=== PATIENT | female | born 1980 | race American Indian/Alaskan Native ===

== ENCOUNTER 2016-07-04 09:00 | Outpatient (CLI) | payer MEDICAID ==
[2016-07-04 18:45] VITALS: BP 107/62
== END 2016-07-04 19:22 | disposition home or self-care (01) ==
LOC: TRG 09:00
PROVIDERS: ATTEND Obstetrics & Gynecology
DX: O77.9 Labor and delivery complicated by fetal stress, unspecified (principal); O47.9 False labor, unspecified; Z3A.00 Weeks of gestation of pregnancy not specified
CPT/HCPCS: 59025; 96372

== ENCOUNTER 2016-07-04 13:46 | Inpatient (IN) | payer MEDICAID ==
[~2016-07-04 13:46] MED LIST: FLUARIX QUAD 2016-2017(36 MOS+) IM ONE
[2016-07-04] MEDS ORDERED: STADOL ONE (14:03)
[2016-07-04] MEDS ORDERED: POLYCILLIN/NS 2 GM/100 ML 2 GM/100 ML BAG IV ONE (14:03)
--- NOTE | 2016-07-04 14:30 | History and Physical Report ---
History of Present Illness Date of examination: 07/04/16 Date of admission: 07/04/16 13:46 History of present illness: Patient presented to labor and delivery for complaints of regular contractions and vaginal bleeding. On initial exam by RN patient's cervix 4 cm which is a change from earlier of 1 cm and patient's been admitted active labor. 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 yes EDC Calculations LMP: 07/11/2016 Past History : 6 Term Births: 3 Living Children: 3 Para: 3 Aborta: 2 Elect. Ab: 2 Spont. Ab: 0 Ectopics: 0 # 1 Delivery date: 02/11/2001 Weeks Gestation: 42 labor: no Delivery type: Anesthesia type: epidural Delivery location: [facility] Infant Sex: Female weight: 7lbs Comments: no complications # 2 Delivery date: 04/10/2003 Weeks Gestation: 39 labor: no Delivery type: Anesthesia type: epidural Delivery location: [facility] Infant Sex: Male weight: 7-2 Comments: no complications # 3 Delivery date: 04/03/2008 Weeks Gestation: ~22wks Delivery type: EAB Comments: 2nd trimester termination # 4 Delivery date: 05/06/2009 Weeks Gestation: 40 Delivery type: Anesthesia type: epidural Delivery location: [facility]ant Sex: Male weight: 7# # 5 Delivery date: 04/01/2015 Weeks Gestation: 13 Delivery type: EAB Past Medical History: Negative Past Medical History Past Surgical History: Negative Past Surgical History EAB x 2 - 22wks and 13wks Past Medical History Surgery (Non-foot cutter): Negative Past Surgical History EAB x 2 - 22wks and 13wks Abnormal PAP: negative GERALDINE Exposure: negative Infertility: negative Uterine Anomaly: negative Uterine Surgery (not C/S): negative Other Gynecologic Problems: negative Social Hx: Patient is single Smoking History: Patient has never smoked. Infection History Hx of STD: chlamydia HIV Risk Eval: no Hepatitis B Risk Eval: low risk Personal hx. of genital herpes: yes Partner hx. of genital herpes: no Rash, Viral, or Febrile illness since last LMP? no Varicella/Chicken Pox Status: Previous Disease TB Risk: no Infection History Comments: HSV outbreaks usually once per year Genetic History ADVANCED MATERNAL AGE Congenital Heart Defect: Mom: no Dad: no Heather Disease: Mom: no Dad: no Thalassemia Mom: no Dad: no Neural Tube Defect Mom: no Dad: no Down's Syndrome Mom: no Dad: no Jordan-Sachs Mom: no Dad: no Sickle Cell Disease/Trait Mom: no Dad: no Hemophilia Mom: no Dad: no Muscular Dystrophy Mom: no Dad: no Cystic Fibrosis Mom: no Dad: no Karolyn Chorea Mom: no Dad: no Mental Retardation Mom: no Dad: no Fragile X Mom: no Dad: no Other Genetic/Chromosomal Disorder Mom: no Dad: no Child w/other defect Mom: no Dad: no Enviromental Exposures Xray Exposure: no Medication, drug, or alcohol use since LMP: no Chemical/Other Exposure: no Exposure to Cat Liter: no Hx of Parvovirus (Fifth Disease): no Occupational Exposure to Children: none Active Medications: None Current Allergies (reviewed today): No known allergies Past History Past Medical History: other (See HPI) Past Surgical History: D&C, other (See HPI) 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, 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 (See HPI) Family/Genetic History: other (See HPI) Social history: other (See HPI) - Obstetrical History Expected Date of Delivery: 07/11/16 Actual Gestation: 39 Week(s) 0 Day(s) : 6 Para: 3 Hx # Term Pregnancies: 3 Number of Pregnancies: 0 Spontaneous Abortions: 0 Induced : 2 Number of Living Children: 3 Medications and Allergies Allergies Allergy/AdvReac Type Severity Reaction Status Date / Time Penicillins Allergy Swelling Verified 07/04/16 14:39 Home Medications Medication Instructions Recorded Confirmed Last Taken Type No Known Home Medications [No 07/04/16 07/04/16 Unknown History Reported Home Medications] - Vital Signs Vital signs: Vital Signs Pulse Pulse Ox 86 99 07/04/16 13:48 07/04/16 13:48 Temp Pulse Resp BP Pulse Ox 98 H 102/59 93 07/04/16 14:16 07/04/16 14:15 07/04/16 14:16 - Physical Exam Breasts: Positive: deferred Cardiovascular: Regular rate Lungs: Positive: Normal air movement Abdomen: Positive: normal appearance Genitourinary (Female): Positive: normal external genitalia, other (no lesion seen) Vulva: both: normal Vagina: Positive: normal moisture - Obstetrical FHR: category 1 Uterine Contraction Pattern: Regular Results Result Diagrams: 07/04/16 15:30 All other labs normal. Assessment and Plan - Patient Problems (1) 39 weeks gestation of Current Visit: Yes Status: Acute (2) Active labor at term Current Visit: Yes Status: Acute Plan to address problem: Patient admitted following labor and delivery protocol (3) Herpes Current Visit: Yes Status: Inactive Plan to address problem: No active lesions seen (4) Polyhydramnios Current Visit: Yes Status: Acute Qualifiers: Fetus number: single or unspecified fetus Trimester: third trimester Qualified Code(s): O40.3XX0 - Polyhydramnios, third trimester, not applicable or unspecified (5) Morbid obesity due to excess calories Current Visit: Yes Status: Chronic (6) Advanced maternal age (AMA) in Current Visit: Yes Status: Acute (7) Group B streptococcal carriage complicating Current Visit: Yes Status: Acute Plan to address problem: Antiboitic prophylaxis started
[2016-07-04] MEDS ORDERED: STADOL IV PRN ×2 (14:37→14:39)
[2016-07-04] MEDS ORDERED: PHENERGAN PO PRN ×2 (14:39→22:57)
[2016-07-04] MEDS ORDERED: ePHEDrine SULFATE IV PRN (14:39)
[2016-07-04] MEDS ORDERED: PITOCin/NS 20 UNIT/1000ML DRIP 20 UNIT/1,000 ML BAG IV SCH ×2 (15:00→22:57)
[2016-07-04] MEDS ORDERED: LACTATED RINGERS 1,000 ML IV SCH ×2 (15:00→16:00)
[2016-07-04 15:05] LABS: Hematocrit 27.6 % (30.3-42.9); Hemoglobin 8.4 gm/dl (10.1-14.3); Mean Corpuscular HGB Conc 30 % (30-34); Mean Corpuscular Volume 72 fl (79-97); Red Blood Count 3.84 M/mm3 (3.65-5.03); White Blood Count 16.7 K/mm3 (4.5-11.0)
[2016-07-04 15:18] LABS: Mean Corpuscular Hemoglobin 22 pg (28-32)
[2016-07-04 15:19] LABS: Platelet Count 97 K/mm3 (140-440); Red Cell Distribution Width 22.8 % (13.2-15.2)
[2016-07-04] MEDS ORDERED: BRETHINE IVP PRN (15:53)
[2016-07-04] MEDS ORDERED: ZOFRAN ONE (15:53)
[2016-07-04 16:22] LABS: White Blood Count 16.7 K/mm3 (4.5-11.0)
[2016-07-04 16:23] LABS: Hematocrit 27.6 % (30.3-42.9); Hemoglobin 8.4 gm/dl (10.1-14.3); Mean Corpuscular HGB Conc 30 % (30-34); Mean Corpuscular Hemoglobin 22 pg (28-32); Mean Corpuscular Volume 72 fl (79-97); Red Blood Count 3.84 M/mm3 (3.65-5.03)
[2016-07-04 16:24] LABS: Platelet Count 97 K/mm3 (140-440); Red Cell Distribution Width 22.8 % (13.2-15.2)
[2016-07-04] MEDS ORDERED: CLEOCIN 900 MG/50 mL 900 MG/50 ML BAG IV SCH (17:00)
--- NOTE | 2016-07-04 17:15 | Event Note ---
Date: 07/04/16 Patient could not receive epidural due to thrombocytopenia exam is now 8 cm 100 % effaced 0 station. Artificial rupture membranes revealed clear fluid. We'll continue expected management hopeful for delivery soon
--- NOTE | 2016-07-04 18:15 | Procedure Note ---
OB Delivery Note - Delivery Date of Delivery: 07/04/16 Surgeon: FLAQUITA OSORIO Estimated blood loss: other (400cc) - Vaginal Delivery position: OA Intrapartum events: hydramnios Delivery augmentation: rupture of membranes Delivery monitor: external FHT, external uterine Route of delivery: Delivery placenta: spontaneous Delivery cord: nuchal cord (x2), 3 umbilical vessels Episiotomy: none Delivery laceration: none - Infant A at 1 minute: 8 at 5 minutes: 9 Infant Gender: Male (Uncomplicated delivery nuchal cord easily reduced)
[2016-07-04] MEDS ORDERED: MOTRIN PO ONE (18:30)
[2016-07-04] MEDS ORDERED: LANSINOH TP PRN (22:57)
[2016-07-04] MEDS ORDERED: MILK OF MAGNESIA PO PRN (22:57)
[2016-07-04] MEDS ORDERED: BENADRYL PO PRN (22:57)
[2016-07-04] MEDS ORDERED: TUCKS PAD TP PRN (22:57)
[2016-07-04] MEDS ORDERED: TYLENOL PO PRN (22:57)
[2016-07-04] MEDS ORDERED: DERMOPLAST TP PRN (22:57)
[2016-07-04] MEDS ORDERED: SODIUM CHLORIDE FLUSH SYRINGE 10 ML IV NR (22:57)
[2016-07-04] MEDS ORDERED: NORCO 5/325 PO PRN (22:57)
[2016-07-04] MEDS ORDERED: DULCOLAX PR PRN (22:57)
[2016-07-05] MEDS: COLACE PO SCH ×3 (00:08→22:40)
[2016-07-05] MEDS: MOTRIN PO SCH ×4 (00:08→23:55)
[2016-07-05] MEDS ORDERED: BOOSTRIX IM ONE (06:00)
--- NOTE | 2016-07-05 06:30 | Progress Note ---
Assessment and Plan - Patient Problems (1) Spontaneous vaginal delivery Onset Date: ~07/04/16 Current Visit: Yes Status: Acute Plan to address problem: Pt w/o complaint this AM. VSS FF below umb Lochia small Perineum intact H&H 8.4/ 27.6 on admission Waiting for post del H&H to be drawn Chronic anemia. Doing well s/p vag delivery. P: continue pathway. Iron PO QD D/C tomorrow Subjective - Subjective Date of service: 07/05/16 (pt req d/c explained GBS not fully treated d/c tomorrow Pt OK) Patient reports: appetite normal, voiding normally, pain well controlled, ambulating normally : doing well Objective - Vital Signs Latest vital signs: Vital Signs Temp Pulse Pulse Resp BP BP Pulse Ox 07/05/16 04:51 98.9 F 98 H 20 103/67 07/05/16 00:00 99.1 F 96 H 20 105/61 07/04/16 20:00 99.0 F 91 H 20 98/62 07/04/16 18:24 112/52 07/04/16 17:10 97.6 F 07/04/16 14:40 98.1 F 80 18 102/59 99 07/04/16 14:16 98 H 93 07/04/16 14:15 88 102/59 07/04/16 14:13 82 95 07/04/16 14:09 94 H 94 07/04/16 14:08 88 98 07/04/16 14:03 85 95 07/04/16 13:58 88 98 07/04/16 13:54 82 92 07/04/16 13:53 84 96 07/04/16 13:48 86 99 Intake and Output 07/04/16 07/04/16 07/05/16 14:59 22:59 06:59 Intake Total 2850 360 Output Total 800 Balance 2850 -440 Intake: IV 2850 CLEOCIN 900 MG/50 mL 900 50 mg In 50 ml @ 0 mls/hr IV Q8H ALTAGRACIA Rx#:[id number] Lactated Ringers 1,000 ml 2000 @ 125 mls/hr IV DIRECT ALTAGRACIA Rx#:[id number] PITOCin/NS 20 UNIT/1000ML 800 DRIP 20 unit In 1,000 ml @ 125 mls/hr IV DIRECT ALTAGRACIA Rx#:[id number] Oral 360 Output: Urine 800 Void 800 Other: Total, Intake Amount 240 Total, Output Amount 200 # Voids Void 1 Weight 230 lb Estimated Blood Loss 400 Patient Weight 07/05/16 06:59 Weight 230 lb - Exam Breasts: Present: deferred Cardiovascular: Present: Regular rate Lungs: Present: Clear to auscultation, Normal air movement Abdomen: Present: normal appearance, soft, normal bowel sounds Uterus: Present: normal, fundal height below umbilicus Extremities: Present: normal Deep Tendon Reflex Grade: Normal +2 Incision: Present: normal, dry, intact Comments: Perineum intact No laceration - Labs Labs: Abnormal lab results 07/04/16 07/04/16 Range/Units 14:30 15:30 WBC 16.7 H 16.7 H (4.5-11.0) K/mm3 Hgb 8.4 L 8.4 L (10.1-14.3) gm/dl Hct 27.6 L 27.6 L (30.3-42.9) % MCV 72 L 72 L (79-97) fl MCH 22 L 22 L (28-32) pg RDW 22.8 H 22.8 H (13.2-15.2) % Plt Count 97 L 97 L (140-440) K/mm3
[2016-07-05] MEDS: PRENATAL VITAMIN PO SCH (12:15)
[2016-07-05 14:03] LABS: Hemoglobin 6.8 gm/dl (10.1-14.3)
[2016-07-05] MEDS ORDERED: FEOSOL PO ONE (15:55)
[2016-07-05] MEDS: FEOSOL PO SCH ×2 (16:00→22:40)
[2016-07-05 17:28] LABS: Hematocrit 21.4 % (30.3-42.9); Hemoglobin 6.6 gm/dl (10.1-14.3)
[2016-07-06] MEDS: MOTRIN PO SCH ×2 (05:50→12:15)
[2016-07-06 06:13] LABS: Hematocrit 20.9 % (30.3-42.9); Hemoglobin 6.4 gm/dl (10.1-14.3); Mean Corpuscular HGB Conc 31 % (30-34); Mean Corpuscular Volume 73 fl (79-97); Platelet Count 112 K/mm3 (140-440); Red Blood Count 2.84 M/mm3 (3.65-5.03)
[2016-07-06 06:30] LABS: White Blood Count 20.4 K/mm3 (4.5-11.0)
[2016-07-06 06:31] LABS: Mean Corpuscular Hemoglobin 23 pg (28-32); Red Cell Distribution Width 23.2 % (13.2-15.2)
--- NOTE | 2016-07-06 08:54 | Progress Note ---
Assessment and Plan Patient doing well, no complaints, denies s/s anemia, most recent H&H 6.4/ 20.9. VSSAF, lochia scant, breast feeding without difficulty. Patient desires d/ c home today. - Patient Problems (1) Anemia Current Visit: Yes Status: Acute Qualifiers: Anemia type: iron deficiency Iron deficiency anemia type: inadequate dietary iron intake Vitamin B12 deficiency anemia type: V Folate deficiency anemia type: F Bone marrow failure anemia type: B Hemolytic anemia type: H Other causes of anemia: O Qualified Code(s): D50.8 - Other iron deficiency anemias Plan to address problem: pt is asymptomatic FE supplementation (2) Spontaneous vaginal delivery Onset Date: ~07/04/16 Current Visit: Yes Status: Acute Subjective - Subjective Date of service: 07/06/16 Principal diagnosis: day #2 s/p , chronic anemia Patient reports: appetite normal, voiding normally, pain well controlled, ambulating normally, no dizzy ambulation, no nauseated : doing well, nursing well Objective - Vital Signs Latest vital signs: Vital Signs Temp Pulse Resp BP 07/06/16 00:00 98.6 F 83 20 104/60 07/05/16 16:14 98.5 F 82 20 106/58 Intake and Output 07/05/16 07/06/16 07/06/16 22:59 06:59 14:59 Intake Total 240 240 Balance 240 240 Intake: Oral 240 240 Other: Total, Intake Amount 240 240 # Voids Void 1 1 - Exam Breasts: Present: normal, mass Lungs: Present: Clear to auscultation, Normal air movement Abdomen: Present: normal appearance, soft Vulva: both: normal Uterus: Present: normal, firm Extremities: Present: normal - Labs Labs: Abnormal lab results 07/05/16 07/05/16 07/06/16 Range/Units 13:25 17:15 05:46 WBC 20.4 H (4.5-11.0) K/mm3 RBC 2.84 L (3.65-5.03) M/mm3 Hgb 6.8 L 6.6 L 6.4 L (10.1-14.3) gm/dl Hct 22.0 L 21.4 L 20.9 L (30.3-42.9) % MCV 73 L (79-97) fl MCH 23 L (28-32) pg RDW 23.2 H (13.2-15.2) % Plt Count 112 L (140-440) K/mm3
--- NOTE | 2016-07-06 09:00 | Discharge Summary ---
Providers - Providers Date of Admission: 07/04/16 13:46 Date of discharge: 07/06/16 (desires d/c home today) Attending physician: FLAQUITA OSORIO 07/04/16 22:57 Consult to Watch Repair Technician [CONS] Routine Reason For Exam: assistance with , SNS Primary care physician: FLAQUITA OSORIO Hospitalization Reason for admission: active labor Delivery: Episiotomy: none Laceration: none Other procedures: none complications: none Discharge diagnosis: IUP at term delivered baby: male Hospital course: uncomplicated vaginal delivery Condition at discharge: Good Disposition: DISCHARGED TO HOME OR SELFCARE - Discharge Diagnoses (1) Anemia Status: Acute Qualifiers: Anemia type: iron deficiency Iron deficiency anemia type: inadequate dietary iron intake Vitamin B12 deficiency anemia type: V Folate deficiency anemia type: F Bone marrow failure anemia type: B Hemolytic anemia type: H Other causes of anemia: O Qualified Code(s): D50.8 - Other iron deficiency anemias (2) Spontaneous vaginal delivery Status: Acute Plan - Discharge Medications Prescriptions: Docusate Sodium [Colace] 100 mg PO BID PRN #60 capsule PRN Reason: Constipation Ferrous Sulfate [Feosol 325 MG tab] 325 mg PO BID #60 tablet Ibuprofen [Motrin 800 MG tab] 800 mg PO TID PRN #30 tablet PRN Reason: Pain Lidocain2.5%/Prilocai2.5% [Emla] 5 gm TP PRN #1 tube - Provider Discharge Summary Activity: routine, no sex for 6 weeks, no heavy lifting 4 weeks, no strenuous exercise Diet: routine Instructions: routine Additional instructions: [] Smoking cessation referral if applicable(refer to patient education folder for contact #) [] Refer to [facility] Booklet Call your doctor immediately for: * Fever > 100.5 * Heavy vaginal bleeding ( >1 pad per hour) * Severe persistent headache * Shortness of breath * Reddened, hot, painful area to leg or breast * Drainage or odor from incision. * Keep incision clean and dry at all times and follow doctor's instructions regarding bathing/showering - Follow up plan Follow up: FLAQUITA OSORIO MD [Primary Care Provider] - 7 Days (Congratulations! Please call [phone] to schedule your son's circumcision in 1 week and your visit in 4 weeks. Bring EMLA cream with you to his appointment and await further instructions. Call for any questions or concerns. )
[2016-07-06] MEDS: PRENATAL VITAMIN PO SCH (09:04)
[2016-07-06] MEDS: COLACE PO SCH (09:04)
[2016-07-06] MEDS ORDERED: FLUARIX QUAD 2016-2017(36 MOS+) IM ONE ×2 (12:00→17:15)
[2016-07-06 16:38] VITALS: BP 96/64
== END 2016-07-06 18:05 | disposition home or self-care (01) | DRG 774 ==
LOC: LD 13:46 → OB 20:05
PROVIDERS: ADMIT Obstetrics & Gynecology; ATTEND Obstetrics & Gynecology
PROC: 10E0XZZ Delivery of Products of Conception, External Approach (ICD-10-PCS; principal; 2016-07-04)
DX: O40.3XX0 Polyhydramnios, third trimester, not applicable or unspecified (principal); O98.513 Other viral diseases complicating pregnancy, third trimester; Z68.41 Body mass index [BMI] 40.0-44.9, adult; O99.214 Obesity complicating childbirth; E66.01 Morbid (severe) obesity due to excess calories; O99.824 Streptococcus B carrier state complicating childbirth; Z37.0 Single live birth; Z3A.39 39 weeks gestation of pregnancy; O99.02 Anemia complicating childbirth; D64.9 Anemia, unspecified; O09.523 Supervision of elderly multigravida, third trimester; B00.9 Herpesviral infection, unspecified; O69.81X0 Labor and delivery complicated by cord around neck, without compression, not applicable or unspecified
CPT/HCPCS: 36415; 85014; 85018; 85027; 86850; 86900; 86901; 90471; 90686; 90715; 99211; G0463; J0290; J0595; J2405; J2590; J7120

== ENCOUNTER 2017-04-10 22:53 | Emergency (ER) | payer MEDICAID, OTHER ==
[2017-04-10 23:35] LABS: Basophils % (Auto) 1.8 % (0.0-1.8); Eosinophils % (Auto) 5.2 % (0.0-4.3); Hematocrit 31.9 % (30.3-42.9); Hemoglobin 10.5 gm/dl (10.1-14.3); Mean Corpuscular HGB Conc 33 % (30-34); Mean Corpuscular Hemoglobin 28 pg (28-32); Mean Corpuscular Volume 86 fl (79-97); Platelet Count 222 K/mm3 (140-440); Red Blood Count 3.73 M/mm3 (3.65-5.03); Red Cell Distribution Width 16.6 % (13.2-15.2); White Blood Count 7.2 K/mm3 (4.5-11.0)
[2017-04-10 23:51] LABS: Alanine Aminotransferase 9 units/L (7-56); Albumin 3.8 g/dL (3.9-5); Albumin/Globulin Ratio 1.2 %; Alkaline Phosphatase 72 units/L (35-129); Anion Gap 15 mmol/L; BUN/Creatinine Ratio 25; Bilirubin,Total < 0.20 mg/dL (0.1-1.2); Blood Urea Nitrogen 10 mg/dL (7-17); Calcium 8.9 mg/dL (8.4-10.2); Carbon Dioxide 26 mmol/L (22-30); Chloride 104.9 mmol/L (98-107); Glucose 91 mg/dL (65-100); Lipase 33 units/L (13-60); Potassium 3.8 mmol/L (3.6-5.0); Sodium 142 mmol/L (137-145)
[2017-04-11 00:21] LABS: Mucus,Urine 1+ /HPF
[2017-04-11 00:34] LABS: Bilirubin,Urine Negative (Negative); Blood,Urine Negative (Negative); Ketones,Urine Negative (Negative)
[2017-04-11 00:35] LABS: Leukocyte Esterase,Urine Moderate (Negative); Nitrite,Urine Negative (Negative); Urobilinogen,Urine < 2.0 mg/dL (<2.0)
--- NOTE | 2017-04-11 04:46 | Emergency Department Report ---
ED Abdominal Pain HPI - General Chief Complaint: Abdominal Pain Stated Complaint: LOWER ABD PAIN Time Seen by Provider: 04/11/17 04:37 Source: patient Mode of arrival: Ambulatory Limitations: No Limitations - History of Present Illness Initial Comments: Patient is 36 years old female with no significant past medical history presented with suprapubic pain and dysuria. Patient denied any fever she stated that she has been having nausea but no vomiting. No other complaints. MD Complaint: abdominal pain Location: suprapubic Radiation: none Migration to: no migration Severity scale (0 -10): 3 Quality: burning Improves With: nothing Associated Symptoms: nausea, dysuria. denies: vomiting, diarrhea, fever, chills , constipation, hematemesis, hematochezia, melena, hematuria, anorexia, syncope - Related Data Home Medications Medication Instructions Recorded Confirmed Last Taken Nitrofurantoin Norman/M-Cryst 100 mg PO DAILY 08/24/16 08/24/16 Unknown [Macrobid CAP] Previous Rx's Medication Instructions Recorded Last Taken Type Docusate Sodium [Colace] 100 mg PO BID PRN #60 capsule 07/05/16 Unknown Rx Ferrous Sulfate [Feosol 325 MG tab] 325 mg PO BID #60 tablet 07/05/16 Unknown Rx Allergies Allergy/AdvReac Type Severity Reaction Status Date / Time Penicillins Allergy Swelling Verified 08/24/16 13:46 ED Review of Systems ROS: Stated complaint: LOWER ABD PAIN Other details as noted in HPI Comment: All other systems reviewed and negative Constitutional: denies: chills, fever Respiratory: denies: cough, orthopnea, shortness of breath, SOB with exertion Cardiovascular: denies: chest pain, palpitations, dyspnea on exertion Gastrointestinal: abdominal pain, nausea. denies: vomiting, diarrhea, constipation, hematemesis, melena, hematochezia Genitourinary: urgency, dysuria, frequency. denies: hematuria, discharge, abnormal menses Musculoskeletal: denies: back pain Neurological: denies: headache, weakness, numbness, paresthesias ED Past Medical Hx - Past Medical History Previous Medical History?: Yes Hx Hypertension: No Hx Congestive Heart Failure: No Hx Diabetes: No Hx Deep Vein Thrombosis: No Hx GERD: Yes (during ) Hx Renal Disease: No Hx Sickle Cell Disease: No Hx Seizures: No Hx Asthma: No Hx COPD: No Hx HIV: No Additional medical history: Obesity - Surgical History Past Surgical History?: No - Social History Smoking Status: Never Smoker Substance Use Type: None - Medications Home Medications: Home Medications Medication Instructions Recorded Confirmed Last Taken Type Docusate Sodium [Colace] 100 mg PO BID PRN #60 capsule 07/05/16 08/24/16 Unknown Rx Ferrous Sulfate [Feosol 325 MG tab] 325 mg PO BID #60 tablet 07/05/16 08/24/16 Unknown Rx Nitrofurantoin Norman/M-Cryst 100 mg PO DAILY 08/24/16 08/24/16 Unknown History [Macrobid CAP] ED Physical Exam - General Limitations: No Limitations General appearance: alert, in no apparent distress - Head Head exam: Present: normocephalic, normal inspection - Eye Eye exam: Present: normal appearance - ENT ENT exam: Present: normal exam - Neck Neck exam: Present: normal inspection - Respiratory Respiratory exam: Present: normal lung sounds bilaterally. Absent: respiratory distress, wheezes, rales, rhonchi, stridor, chest wall tenderness, accessory muscle use, decreased breath sounds, prolonged expiratory - Cardiovascular Cardiovascular Exam: Present: regular rate, normal rhythm, normal heart sounds - GI/Abdominal GI/Abdominal exam: Present: soft, tenderness (suprapubic), normal bowel sounds. Absent: distended, guarding, rebound, rigid, mass, bruit, pulsatile mass, hernia - Extremities Exam Extremities exam: Present: normal inspection - Back Exam Back exam: Present: normal inspection, full ROM. Absent: tenderness, CVA tenderness (R), CVA tenderness (L) - Neurological Exam Neurological exam: Present: alert, oriented X3, CN II-XII intact, normal gait - Skin Skin exam: Present: warm, intact, normal color ED Course Vital Signs 04/10/17 23:00 Temperature 97.9 F Pulse Rate 75 Respiratory 18 Rate Blood Pressure 110/80 [Right] O2 Sat by Pulse 100 Oximetry ED Medical Decision Making - Lab Data Result diagrams: 04/10/17 23:12 04/10/17 23:12 Critical care attestation.: If time is entered above; I have spent that time in minutes in the direct care of this critically ill patient, excluding procedure time. ED Disposition Clinical Impression: Abdominal pain, UTI (urinary tract infection) Disposition: - TO HOME OR SELFCARE Is pt being admited?: No Condition: Stable Instructions: Abdominal Pain (ED), Urinary Tract Infection in Women (ED) Referrals: AMANDA DAILEY MD [Primary Care Provider] - 3-5 Days
[2017-04-11 05:16] VITALS: BP 118/78
== END 2017-04-11 05:16 | disposition home or self-care (01) ==
LOC: ED 22:53
DX: N39.0 Urinary tract infection, site not specified (principal); E66.9 Obesity, unspecified; Z88.0 Allergy status to penicillin
CPT/HCPCS: 36415; 80053; 81001; 83690; 84702; 85025; 99283

== ENCOUNTER 2019-01-05 13:53 | Outpatient (CLI) | payer OTHER ==
[2019-01-05] MEDS ORDERED: LACTATED RINGERS 500 ML IV ONE (14:36)
[2019-01-05 15:15] VITALS: BP 124/74
[2019-01-05 17:23] LABS: Bacteria,Urine 1+ /HPF (Negative); Bilirubin,Urine NEG (Negative); Blood,Urine NEG (Negative); Color,Urine Yellow (Yellow); Protein,Urine <15 mg/dL mg/dL (Negative)
[2019-01-05] MEDS ORDERED: LACTATED RINGERS 1,000 ML IV ONE (17:41)
--- NOTE | 2019-01-06 09:04 | Ultrasound Report ---
ULTRASOUND BIOPHYSICAL PROFILE ULTRASOUND OB LIMITED INDICATION: decreased movement. well being. TECHNIQUE: Transabdominal ultrasound imaging. COMPARISON: None FINDINGS: breathing movement = 2 Gross body movement = 2 tone = 2 Qualitative amniotic fluid volume = 2 Total biophysical score = 8/8 Amniotic fluid index is 23.4 cm. Presentation is cephalic. heart rate is 166 beats per minute. IMPRESSION: biophysical profile equals 8/8. No acute abnormality appreciated. Signer Name: Se Moreno Jr, MD Signed: 01/06/2019 9:00 AM Workstation Name: [id number]
== END 2019-01-05 17:21 | disposition home or self-care (01) ==
LOC: TRG 13:53
PROVIDERS: ATTEND Obstetrics & Gynecology
DX: O47.03 False labor before 37 completed weeks of gestation, third trimester (principal); Z3A.34 34 weeks gestation of pregnancy
CPT/HCPCS: 59025; 76815; 76819; 81001

== ENCOUNTER 2019-01-21 12:30 | Outpatient (CLI) | payer OTHER ==
[2019-01-21 12:55] VITALS: BP 103/59
--- NOTE | 2019-01-21 14:51 | Ultrasound Report ---
ULTRASOUND BIOPHYSICAL PROFILE INDICATION: DECREASED MOVEMENT AND NR NST. COMPARISON: None available. FINDINGS: heart rate is 143 beats per minute. breathing movement = 2 Gross body movement = 2 tone = 2 Qualitative amniotic fluid volume = 2 IMPRESSION: biophysical profile = 01/08 Signer Name: Se Moreno Jr, MD Signed: 01/21/2019 2:47 PM Workstation Name: [id number]
== END 2019-01-21 14:35 | disposition home or self-care (01) ==
LOC: TRG 12:30
PROVIDERS: ATTEND Obstetrics & Gynecology
DX: O47.03 False labor before 37 completed weeks of gestation, third trimester (principal); Z3A.36 36 weeks gestation of pregnancy
CPT/HCPCS: 59025; 76819

== ENCOUNTER 2019-01-22 15:40 | Inpatient (IN) | payer OTHER ==
[2019-01-22] MEDS ORDERED: COLACE PO PRN (15:55)
[2019-01-22] MEDS ORDERED: TYLENOL PO PRN (15:55)
[2019-01-22] MEDS ORDERED: LACTATED RINGERS 1,000 ML IV SCH ×2 (16:00→20:00)
[2019-01-22] MEDS ORDERED: PEPCID IV SCH (19:30)
[2019-01-22] MEDS ORDERED: BICITRA PO SCH (19:30)
[2019-01-22] MEDS ORDERED: REGLAN IV SCH (19:30)
[2019-01-22] MEDS ORDERED: SUBLIMAZE ONE (19:43)
[2019-01-22] MEDS ORDERED: VERSED IV ONE (19:43)
[2019-01-22] MEDS ORDERED: PHENYLEPHRINE/NS Syringe 1,000 MCG/10 ML IV ONE (19:52)
[2019-01-22] MEDS ORDERED: DIPRIVAN 10 MG/ML IV ONE (19:55)
[2019-01-22] MEDS ORDERED: ANCEF/STERILE WATER 2 GM/20 ML 2 GM/20 ML SYRINGE IV NR (20:00)
[2019-01-22] MEDS ORDERED: PITOCin/NS 20 UNIT/1000ML DRIP 20 UNITS/1,000 ML BAG IV SCH (20:00)
[2019-01-22 20:16] LABS: Basophils % (Auto) 0.2 % (0.0-1.8); Eosinophils # (Auto) 0.2 K/mm3 (0.0-0.4); Eosinophils % (Auto) 1.8 % (0.0-4.3); Hematocrit 25.8 % (30.3-42.9); Hemoglobin 8.4 gm/dl (10.1-14.3); Lymphocytes # (Auto) 1.6 K/mm3 (1.2-5.4); Lymphocytes % (Auto) 17.5 % (13.4-35.0); Mean Corpuscular HGB Conc 33 % (30-34); Mean Corpuscular Volume 72 fl (79-97); Monocytes % (Auto) 11.2 % (0.0-7.3); Platelet Count 145 K/mm3 (140-440); Red Blood Count 3.61 M/mm3 (3.65-5.03); Red Cell Distribution Width 20.7 % (13.2-15.2)
[2019-01-22] MEDS ORDERED: BLOXIVERZ ONE (20:27)
[2019-01-22] MEDS ORDERED: TORADOL ONE (20:27)
[2019-01-22] MEDS ORDERED: ROBINUL ONE (20:27)
[2019-01-22] MEDS ORDERED: ZOFRAN ONE (20:27)
[2019-01-22] MEDS ORDERED: QUELICIN ONE (20:30)
[2019-01-22] MEDS ORDERED: MORPHINE ONE ×2 (20:31)
--- NOTE | 2019-01-22 20:37 | Ultrasound Report ---
CLINICAL DATA: well-being. TECHNICAL DATA: Document breath, motion, gestational age, tone, and fluid. FINDINGS: respiration, tone, and motion are not visualized. Amniotic fluid volume is normal. Biophysical profile score is 2/8. The lower uterine segment is evaluated and there is no evidence of placenta previa. heart rate is 126 IMPRESSION: The biophysical profile score is 2/8. Signer Name: Lupillo Archer MD Signed: 01/22/2019 8:32 PM Workstation Name: [id number]
--- NOTE | 2019-01-22 20:47 | Ultrasound Report ---
ULTRASOUND OBSTETRIC BIOPHYSICAL PROFILE INDICATION: nonreassuring status, possible ascites. Clinical gestational age of 36 weeks, 2 days TECHNIQUE: Transabdominal. COMPARISON: OB ultrasound from 01/21/2019. FINDINGS: There is a single intrauterine . Biparietal Diameter = 9.2 cm = 37 weeks, 3 day(s). Head Circumference = 32.16 cm = 36 weeks, 2 day(s). Abdominal Circumference = 36.53 cm = 40 weeks, 3 day(s). Femur Length = 7.18 cm = 36 weeks, 5 day(s). Average Ultrasound Age (AUA) = 37 weeks, 5 day(s). Heart Rate: 126 beats per minute. Estimated Weight in grams (if calculated): 3599 Position: cephalic. Cervix: closed. Length in cm (if measured): Placenta: anterior and free of the os. Amniotic Fluid Volume: normal Amniotic Fluid Index (SHIV) in cm (if calculated): 14.1. Maternal Adnexa: No significant abnormality. Additional findings: The systems technologist describes a possible minimal amount of free fluid in the abdomen. The biophysical profile is 2/8 (previously 8/8). breathing movements, movements and postu re/tone were abnormal during the study. IMPRESSION: 1. Single, living intrauterine with estimated sonographic age of 37 weeks, 5 day(s). 2. Possible minimal amount of free fluid in the abdomen. 3. Abnormal biophysical profile of 2/8. Signer Name: Jorge Jorge MD Signed: 01/22/2019 8:43 PM Workstation Name: [id number]
[2019-01-22] MEDS ORDERED: NARCAN 0.4 MG/1 ML IV PRN (20:56)
[2019-01-22] MEDS ORDERED: DILAUDID IV PRN (20:56)
[2019-01-22] MEDS ORDERED: PHENERGAN PO PRN (20:56)
[2019-01-22] MEDS ORDERED: PHENERGAN PR PRN (20:56)
[2019-01-22] MEDS ORDERED: ZOFRAN IV PRN (20:56)
--- NOTE | 2019-01-22 20:57 | Operative Report ---
Operative Report Operative Report: Date of procedure: Pre-operative diagnosis: Intrauterine of 36 weeks with prolonged bradycardia. Nonreassuring heart rate remote from delivery Post-operative diagnosis: Same Procedure name(s): Stat primary low transverse section Surgeon: Luis Kiran MD Rotary Rock Drilling Machine Operator: [] Anesthesia: Gen. EBL: 800 mL Complications: None Findings: Patient with normal uterus tubes and ovaries bilaterally. Depressed female . Weight and Apgars not immediately available due to resuscitation work the intensive care team Specimen(s): Placenta Indication: This is a patient admitted due to nonreassuring testing. Upon arrival to labor and delivery the patient heart tracing improved over was obtained the office. The patient had a biophysical profile done in our office [place] what appeared to be edema and biophysical profile 2 out of 8. Patient had a previous biophysical profile at the perinatologist earlier this week with results. 8 out of 8. The ultrasound was then repeated at the hospital due to inconsistency with previous ultrasounds. Patient underwent the ultrasound showed heart rate of 126 bpm but upon placing the patient back on monitor and the heart rates were in the 70s with no accelerations and no change with change in maternal position. I arrived at the hospital and upon in the patient's room patient was in the knee chest position with sustained bradycardia. stat was called and patient was moved to the OR expediently Procedure: The patient was brought to the operating room in a stat fashion. She was then placed in left lateral tilt. Prepped and draped in the usual sterile manner. Gen. anesthesia was induced without difficulty. A Pfannenstiel incision was made. This incision was taken down to the fascia. Fascial incision was then made with the scalpel. The fascia was then sharply and bluntly from the underlying rectus muscles. The rectus muscles were bluntly and sharply . The peritoneum was then entered with the picker machine operator's fingers. This incision was spread vertically with care not to damage the bladder below. Bladder blade was placed. A transverse incision was made in lower uterine segment. This incision was extended laterally with the operators fingers. The amniotic sac was then entered bluntly with the picker machine operator's fingers. The infant was delivered from the vertex position. Bulb suction on the mother's abdomen. Cord was double clamped and cut. The infant was then passed to the nursery personnel who were in attendance. The placenta was then bluntly removed. The uterus was then externalized and wiped clean the remaining products. The uterine incision was closed in layers. The first incision was closed in a locking manner using 0 Vicryl. This was followed by imbricating stitch also with 0 Vicryl. This closure was hemostatic after additional [id number] sutures were placed. The bladder flap was copiously irrigated and found to be hemostatic. The pelvis was copiously irrigated and found to be h emostatic. The uterus was then placed back to the patient's abdomen. The retractors were removed. The rectus muscles were inspected and found to be hemostatic. The fascia was then closed in a running manner using 0 Vicryl. This incision was hemostatic irrigation Bovie. The skin was reapproximated with 4-0 Vicryl subcuticularly. The patient tolerated procedure well. Her urine was clear. The infant was window prolonged resuscitation in the operating room and then transferred to the intensive care unit. Postoperative KUB x- ray was obtained due to no pre-surgery instrument count. The x-ray was clear with no evidence of retained instruments. The patient was awakened in operating room. The patient was accompanied to recovery room in good condition.
--- NOTE | 2019-01-22 20:59 | Anesthesia Consultation ---
Anesthesia Consult and Med Hx Date of service: 01/22/19 - Airway Anesthetic Teeth Evaluation: Good ROM Head & Neck: Adequate Mental/Hyoid Distance: Adequate Mallampati Class: Class II Intubation Access Assessment: Good - Pulmonary Exam CTA: Yes - Cardiac Exam Cardiac Exam: RRR - Pre-Operative Health Status ASA Pre-Surgery Classification: ASA3, Emergency Proposed Anesthetic Plan: General - Pre-Anesthesia Comment Pre-Anesthesia Comments: Emergent C/section, quick History/allergies before putting pt under char - Pulmonary Hx Asthma: No COPD: No Hx Pneumonia: No - Cardiovascular System Hx Hypertension: No - Central Nervous System Hx Seizures: No Hx Psychiatric Problems: No - Endocrine Hx Renal Disease: No Hx End Stage Renal Disease: No Hx Hypothyroidism: No Hx Hyperthyroidism: No - Hematic Hx Anemia: Yes Hx Sickle Cell Disease: No - Other Systems Hx Alcohol Use: No Hx Cancer: No
[2019-01-22] MEDS ORDERED: SODIUM CHLORIDE FLUSH SYRINGE 10 ML IV NR (21:00)
--- NOTE | 2019-01-22 21:00 | Anesthesia Day of Surgery ---
Anesthesia Day of Surgery - Day of Surgery Patient Examined: No (emergent c/section) Patient H&P Reviewed: No (emergent c/section ) Patient is NPO: No (unknown)
--- NOTE | 2019-01-22 21:00 | XRay Report ---
ABDOMEN 1 VIEW(S) INDICATION: no count of laps or instruments due to stat c-sec COMPARISON: None available. FINDINGS: No foreign bodies noted Bowel gas pattern: Within normal limits. No dilated loops of large or small bowel. Free air: None. Calcified gallstones: None seen. Calcified urinary tract calculi: None seen. Additional Findings: None. Skeletal structures: No acute abnormality. IMPRESSION: 1. No acute findings. Signer Name: Lupillo Archer MD Signed: 01/22/2019 8:56 PM Workstation Name: [id number]
[2019-01-22] MEDS: DILAUDID IV PRN ×2 (21:23→21:42)
--- NOTE | 2019-01-22 23:18 | History and Physical Report ---
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 no EDC Calculations LMP: 02/16/2019 EDC Confirmation: 02/16/2019 Gestational Age: 6 1/7 weeks Past History : 7 Term Births: 4 Premature Births: 0 Living Children: 4 Para: 4 Aborta: 2 Elect. Ab: 2 Spont. Ab: 0 Ectopics: 0 # 1 Delivery date: 02/11/2001 Weeks Gestation: 42 labor: no Delivery type: Anesthesia type: epidural Delivery location: [facility] Infant Sex: Female weight: 7lbs Comments: no complications # 2 Delivery date: 04/10/2003 Weeks Gestation: 39 labor: no Delivery type: Anesthesia type: epidural Delivery location: [facility] Sex: Male weight: 7-2 Comments: no complications # 3 Delivery date: 04/03/2008 Weeks Gestation: ~22wks Delivery type: EAB Comments: 2nd trimester termination # 4 Delivery date: 05/06/2009 Weeks Gestation: 40 Delivery type: Anesthesia type: epidural Delivery location: [facility] Sex: Male weight: 7# # 5 Delivery date: 04/01/2015 Weeks Gestation: 13 Delivery type: EAB # 6 Delivery date: 07/04/2016 Weeks Gestation: 39 Delivery type: Vaginal Hours of labor: 8 Anesthesia type: IV medication Delivery location: [facility] Infant Sex: male weight: 8 Name: Mamadou Comments: Polyhydramnios Past Medical History: Reviewed history from 03/01/2015 and no changes required: Negative Past Medical History Past Surgical History: Reviewed history from 11/09/2015 and no changes required: Negative Past Surgical History EAB x 2 - 22wks and 13wks Past Medical History Abnormal PAP: negative Social Hx: Patient is single Smoking History: Patient has never smoked. Infection History Hx of STD: CT and HSV HIV Risk Eval: low risk Hepatitis B Risk Eval: low risk Personal hx. of genital herpes: yes Partner hx. of genital herpes: no Rash, Viral, or Febrile illness since last LMP? no Varicella/Chicken Pox Status: Previous Disease Genetic History ADVANCED MATERNAL AGE Congenital Heart Defect: Mom: no Dad: no Heather Disease: Mom: no Dad: no Thalassemia Mom: no Dad: no Neural Tube Defect Mom: no Dad: no Down's Syndrome Mom: no Dad: no Jordan-Sachs Mom: no Dad: no Sickle Cell Disease/Trait Mom: no Dad: no Hemophilia Mom: no Dad: no Muscular Dystrophy Mom: no Dad: no Cystic Fibrosis Mom: no Dad: no Menard Chorea Mom: no Dad: no Mental Retardation Mom: no Dad: no Fragile X Mom: no Dad: no Other Genetic/Chromosomal Disorder Mom: no Dad: no Child w/other defect Mom: no Dad: no Comments/Counseling: brother--pysch disorder Enviromental Exposures Xray Exposure: no Medication, drug, or alcohol use since LMP: no Chemical/Other Exposure: no Exposure to Cat Liter: no Hx of Parvovirus (Fifth Disease): no Occupational Exposure to Children: none Active Medications (reviewed today): FERROUS SULFATE 325 (65 Fe) MG ORAL TABLET (FERROUS SULFATE) 1 po qd VALACYCLOVIR HCL 500 MG ORAL TABLET (VALACYCLOVIR HCL) 1 po qd Current Allergies (reviewed today): No known allergies Pt seen in office today by JOSE Hawkins for f/u ob appt with c/o decreased mvmt x 2 days. Reports she was evaluated at [facility] triage yesterday and BPP was 8/8 and she was discharged home. NRNST obtained in office. BPP in office is 2/8 (2 for fluid only, FHR 148) US noted FF fluid in abdomen, EIF, and polyhydramnios. Patient sent to [facility] for direct admission with orders for immediate cont. monitoring, US BPP and evaluation of abdomen and heart anatomy. MARCELO Goldstein notified of expectant pt arrivat to unit and of orders per JOSE Hawkins. Past History Past Medical History: other (anemia in , taking Fe. failed 1hr gtt, passed 3hr) Past Surgical History: D&C (x2) BILLING REP History: trichomonas (dx 01/14/19) Family/Genetic History: sickle cell/trait (pt's son SCT +) Social history: no significant social history - Obstetrical History Expected Date of Delivery: 02/16/19 Actual Gestation: 36 Week(s) 4 Day(s) : 7 Para: 4 Hx # Term Pregnancies: 4 Number of Pregnancies: 0 Spontaneous Abortions: 0 Induced : 2 Number of Living Children: 4 Medications and Allergies Allergies Allergy/AdvReac Type Severity Reaction Status Date / Time Penicillins Allergy Swelling Verified 08/24/16 13:46 Home Medications Medication Instructions Recorded Confirmed Last Taken Type No Known Home Medications [No 01/21/19 01/23/19 Unknown History Reported Home Medications] Active Meds: Active Medications Acetaminophen (Tylenol) 650 mg PO Q4H PRN PRN Reason: Pain MILD(1-3)/Fever >100.5/KAUFMAN Citric Acid/Sodium Citrate (Bicitra) 30 ml PO ONCE ALTAGRACIA Stop: 01/23/19 23:00 Docusate Sodium (Colace) 100 mg PO Q12H PRN PRN Reason: Constipation Famotidine (Pepcid) 20 mg IV ONCE ALTAGRACIA Stop: 01/23/19 19:29 Hydromorphone HCl (Dilaudid) 0.5 mg IV Q5M PRN PRN Reason: Breakthrough Pain Stop: 01/23/19 04:15 Last Admin: 01/22/19 21:42 Dose: 0.5 mg Documented by: Hydromorphone HCl (Dilaudid) 0.5 mg IV Q4H PRN PRN Reason: breakthrough pain > 7/10 Lactated Ringer's (Lactated Ringers) 1,000 mls @ 125 mls/hr IV DIRECT ALTAGRACIA Last Admin: 01/22/19 16:53 Dose: 125 mls/hr Documented by: Oxytocin/Sodium Chloride (Pitocin/Ns 20 Unit/1000ml Drip) 20 units in 1,000 mls @ 0 mls/hr IV TITR ALTAGRACIA Lactated Ringer's (Lactated Ringers) 1,000 mls @ 2,250 mls/hr IV PREOP ALTAGRACIA Stop: 01/23/19 20:27 Cefazolin Sodium (Ancef/Sterile Water 2 Gm/20 Ml) 2 gm in 20 mls @ 80 mls/hr IV PREOP NR; Protocol Stop: 01/23/19 19:59 Metoclopramide HCl (Reglan) 10 mg IV ONCE ALTAGRACIA Stop: 01/23/19 19:29 Multivitamins/Iron/Calcium ( Vitamin) 1 each PO QDAY ALTAGRACIA Naloxone HCl (Narcan 0.4 Mg/1 Ml) 0.2 mg IV Q2MIN PRN PRN Reason: Res Rate </= 8 or 02 SAT < 92% Ondansetron HCl (Zofran) 4 mg IV Q8H PRN PRN Reason: Nausea And Vomiting Promethazine HCl (Phenergan) 25 mg PO Q6H PRN PRN Reason: Nausea And Vomiting Promethazine HCl (Phenergan) 25 mg PA Q6H PRN PRN Reason: Nausea And Vomiting Sodium Chloride (Sodium Chloride Flush Syringe 10 Ml) 10 ml IV PRN NR Stop: 01/23/19 20:59 - Vital Signs Vital signs: Vital Signs Pulse BP 101 H 117/63 01/22/19 15:45 01/22/19 15:45 Temp Pulse Resp BP Pulse Ox 97.1 F L 102 H 20 105/66 99 01/22/19 20:45 01/22/19 21:45 01/22/19 21:45 01/22/19 21:45 01/22/19 21:45 Results Result Diagrams: 01/22/19 19:00 Abnormal lab results 01/22/19 01/22/19 Range/Units 19:00 20:34 RBC 3.61 L (3.65-5.03) M/mm3 Hgb 8.4 L (10.1-14.3) gm/dl Hct 25.8 L (30.3-42.9) % MCV 72 L (79-97) fl MCH 23 L (28-32) pg RDW 20.7 H (13.2-15.2) % [place] % (Auto) 11.2 H (0.0-7.3) % [place] # 1.0 H (0.0-0.8) K/mm3 POC ABG pH 6.839 L (7.35-7.45) All other labs normal. Assessment and Plan Upon arrival to unit to complete physical examination, notified by CN of FHTs 70s s/p US completion. Presented to BS to find patient in hands and knees position, RN attempting to locate FHTs with US. Pt repositioned to right lateral position in attempt to locate FHTs. Dr. Kiran presents to BS immediately and stat c/s called. Pt wheeled to OR on bed and c/s performed.
[2019-01-22] MEDS ORDERED: ROMAZICON IV ONE (23:50)
[2019-01-23] MEDS ORDERED: NARCAN 0.4 MG/1 ML IV PRN ×2 (00:50→01:06)
[2019-01-23] MEDS ORDERED: ZOFRAN IV PRN ×2 (00:50→01:06)
[2019-01-23] MEDS ORDERED: SODIUM CHLORIDE FLUSH SYRINGE 10 ML IV NR ×2 (00:50→02:00)
[2019-01-23] MEDS ORDERED: LANSINOH TP PRN (00:50)
[2019-01-23] MEDS ORDERED: D5LR 1,000 ML IV SCH (00:50)
[2019-01-23] MEDS ORDERED: TUCKS PAD TP PRN (00:50)
[2019-01-23] MEDS ORDERED: PITOCin/NS 20 UNIT/1000ML DRIP 20 UNITS/1,000 ML BAG IV SCH (00:50)
[2019-01-23] MEDS ORDERED: IBUPROFEN PO PRN (00:50)
[2019-01-23] MEDS ORDERED: PHENERGAN PR PRN (01:06)
[2019-01-23] MEDS ORDERED: PHENERGAN PO PRN (01:06)
[2019-01-23] MEDS ORDERED: NUBAIN IV PRN (01:06)
[2019-01-23] MEDS ORDERED: DILAUDID IV PRN (01:06)
[2019-01-23] MEDS ORDERED: MORPHINE IV PRN (01:06)
[2019-01-23] MEDS: TORADOL IV PRN ×2 (01:31→09:39)
[2019-01-23] MEDS: CLEOCIN 600 MG/50 mL 600 MG/50 ML BAG IV SCH ×2 (01:35→12:23)
[2019-01-23] MEDS ORDERED: fentaNYL-BUPIV 2 MCG/ML-0.125% 200 MCG/100 ML BAG EPIDURAL SCH (02:00)
[2019-01-23] MEDS: DILAUDID IV PRN ×2 (04:46→23:41)
--- NOTE | 2019-01-23 08:40 | Progress Note ---
Assessment and Plan Pt resting in bed. Affect appropriate. Unsure of support system at this time, pt states "No one is with baby". No visitors present with pt. Pt states she was unaware of Down's Sydrome. Dressing c/d/i. VSS. H/H to be drawn at 0900. Encouraged coughing and deep breathing. - Patient Problems (1) delivery delivered Current Visit: Yes Status: Acute Plan to address problem: Continue postop pathway. Advance activity/diet as tolerated. Subjective - Subjective Date of service: 01/23/19 Principal diagnosis: C/S < 12hrs Patient reports: appetite normal, pain well controlled : transported Objective - Vital Signs Latest vital signs: Vital Signs Temp Pulse Resp BP BP Pulse Ox 01/23/19 04:57 98.2 F 85 20 97/55 96 01/22/19 21:45 102 H 20 105/66 99 01/22/19 21:30 103 H 22 108/68 99 01/22/19 21:15 111 H 20 128/81 98 01/22/19 21:00 109 H 18 123/82 97 01/22/19 20:50 114 H 24 112/64 96 01/22/19 20:45 97.1 F L 122 H 20 108/65 90 01/22/19 19:27 134 H 92 01/22/19 19:26 97 01/22/19 18:56 92 H 99/54 01/22/19 17:56 85 106/60 01/22/19 16:56 96 H 100/59 01/22/19 16:30 94 H 130/74 01/22/19 16:26 97.8 F 101 H 18 117/63 100 01/22/19 15:54 99.3 F 101 H 20 117/63 100 01/22/19 15:45 101 H 117/63 Intake and Output 01/22/19 01/23/19 01/23/19 23:59 07:59 15:59 Intake Total 2000 120 Output Total 300 500 Balance 1700 -380 Intake: IV 2000 Intake, Free Water 120 Output: Urine 300 500 Indwelling Catheter 500 Uretheral (Kirby) 100 Other: Total, Output Amount 500 Estimated Blood Loss 500 - Exam Lungs: Present: Normal air movement Abdomen: Present: normal appearance, soft Vulva: both: normal Uterus: Present: normal, firm, fundal height at umbilicus Extremities: Present: normal Incision: Present: normal, dry, dressed - Labs Labs: Abnormal lab results 01/22/19 01/22/19 Range/Units 19:00 20:34 RBC 3.61 L (3.65-5.03) M/mm3 Hgb 8.4 L (10.1-14.3) gm/dl Hct 25.8 L (30.3-42.9) % MCV 72 L (79-97) fl MCH 23 L (28-32) pg RDW 20.7 H (13.2-15.2) % [place] % (Auto) 11.2 H (0.0-7.3) % [place] # 1.0 H (0.0-0.8) K/mm3 POC ABG pH 6.839 L (7.35-7.45)
[2019-01-23] MEDS: FEOSOL PO SCH (09:39)
[2019-01-23 09:47] LABS: Hematocrit 18.5 % (30.3-42.9); Hemoglobin 5.8 gm/dl (10.1-14.3)
[2019-01-23] MEDS ORDERED: PRENATAL VITAMIN PO SCH (10:00)
--- NOTE | 2019-01-23 10:57 | Event Note ---
Date: 01/23/19 Patient informed of lab results indicate severe anemia and need for blood transfusion. Discussed risks of blood transfusion including transfusion reaction below risks obtained infection including hepatitis and extremely low risk of HIV. Discussed the risks severe anemia with static symptoms, difficulty finding of infection and general weakness. All questions answered and patient agrees to proceed with transfusion 2 units of packed red blood.
[2019-01-23] MEDS ORDERED: NACL 0.9% 500 ML 500 ML IV NR (11:30)
[2019-01-23] MEDS ORDERED: BENADRYL PO NR (11:30)
[2019-01-23] MEDS ORDERED: TYLENOL PO NR (11:30)
[2019-01-23] MEDS: MILK OF MAGNESIA PO PRN (21:09)
[2019-01-23] MEDS: NORCO 5/325 PO PRN (21:17)
[2019-01-24 01:06] LABS: Hematocrit 22.9 % (30.3-42.9); Hemoglobin 7.4 gm/dl (10.1-14.3)
[2019-01-24] MEDS: BENADRYL IV PRN ×2 (01:27→08:32)
[2019-01-24] MEDS: NORCO 5/325 PO PRN ×3 (06:15→17:45)
--- NOTE | 2019-01-24 08:00 | Progress Note ---
Assessment and Plan Pt resting Asked if she needed Alice,spiritual provider, any support Pt declined at this time. VSS Pt has been OOB w/o any report of dizziness FF below umb Lochia scant Incision D&I 2 units PRC infused post H&H 12/22 Stable s/p c/s, transfusion, NB demise. P: continue pathway Advance diet and activity as tolerated. given r eport. Subjective - Subjective Date of service: 01/24/19 (pt AAO; appropriate grieving) Principal diagnosis: Day # 2 s/p section; NB demise Patient reports: voiding normally, pain well controlled, ambulating normally : Objective - Vital Signs Latest vital signs: Vital Signs Temp Pulse Resp BP BP Pulse Ox 01/24/19 07:15 18 01/24/19 06:15 18 01/24/19 04:27 98.5 F 91 H 20 88/57 98 01/24/19 00:11 18 01/23/19 23:41 18 01/23/19 23:29 99.7 F H 20 01/23/19 23:08 101.7 F H 107 H 20 108/65 96 01/23/19 22:29 18 01/23/19 22:17 18 01/23/19 21:17 18 01/23/19 20:47 98.8 F 96 H 18 100/59 96 01/23/19 20:10 99.2 F 101 H 18 101/59 97 01/23/19 19:30 100.6 F H 109 H 18 93/59 98 01/23/19 18:53 100.3 F H 101 H 18 96/51 96 01/23/19 17:06 98.7 F 98 H 18 97/54 96 01/23/19 16:45 99.5 F 100 H 18 100/62 97 01/23/19 16:30 99.5 F 100 H 18 100/62 97 01/23/19 16:00 99.5 F 94 H 18 96/57 01/23/19 15:30 99.5 F 94 H 18 96/57 96 01/23/19 15:00 99.4 F 99 H 18 115/70 01/23/19 14:30 99.4 F 89 19 98/68 01/23/19 14:00 99.4 F 99 H 18 115/70 93 08/23/19 13:45 100.3 F H 102 H 99/66 100 01/23/19 13:30 99.5 F 99 H 18 104/63 01/23/19 13:00 99.5 F 96 H 18 104/63 01/23/19 12:45 99.5 F 92 H 20 86/63 97 Intake and Output 01/23/19 01/24/19 01/24/19 22:59 06:59 14:59 Intake Total 1570 240 Output Total 1100 900 Balance 470 -660 Intake: Oral 600 Intake, Free Water 720 240 Blood Product 250 Leukoreduced Rbc Part 2 250 Unit [id number] Leukoreduced Rbc Part 2 0 Unit [id number] Output: Urine 1100 900 Indwelling Catheter 1100 650 Void 250 Other: Total, Intake Amount 600 Total, Output Amount 1100 250 # Voids Void 1 - Exam Breasts: Present: normal Cardiovascular: Present: Regular rate Lungs: Present: Normal air movement Abdomen: Present: normal appearance, soft, normal bowel sounds Vulva: both: normal Uterus: Present: normal, fundal height below umbilicus Extremities: Present: normal Deep Tendon Reflex Grade: Normal +2 Incision: Present: normal, dry, intact - Labs Labs: Abnormal lab results 01/22/19 01/23/19 01/24/19 Range/Units 19:00 09:23 00:45 Hgb 5.8 L* 7.4 L (10.1-14.3) gm/dl Hct 18.5 L* D 22.9 L (30.3-42.9) % Crossmatch See Detail
[2019-01-24] MEDS: FEOSOL PO SCH (10:02)
[2019-01-24] MEDS: MILK OF MAGNESIA PO PRN (22:34)
[2019-01-25] MEDS: NORCO 5/325 PO PRN ×2 (06:37→10:23)
--- NOTE | 2019-01-25 08:28 | Discharge Summary ---
Providers - Providers Date of Admission: 01/22/19 15:50 Date of discharge: 01/25/19 (pt req d/c today) Attending physician: FLAQUITA OSORIO 01/23/19 00:50 Consult to Casting And Curing Operator [CONS] Routine Reason For Exam: Primary care physician: FLAQUITA OSORIO Hospitalization Reason for admission: other (emergency c/s distress) Delivery: Procedure: primary low transverse Episiotomy: none Laceration: none Incision: normal, dry, intact Other procedures: none complications: none Discharge diagnosis: IUP at term delivered [place] baby: female (demised < 24hours after ) Hospital course: emergency section under general anesthesia Pt resting in bed No c/o voiced VSS FF below umb Abdominal binder on. Incision D&I Asymptomatic anemia Stable s/p c/s and NB demise P: d/c today with instructions RTO 1 week postop care Condition at discharge: Good Disposition: DC-01 TO HOME OR SELFCARE - Discharge Diagnoses (1) delivery delivered Status: Acute Comment: RTO 1 week postop care Plan - Provider Discharge Summary Activity: routine, no sex for 6 weeks, no heavy lifting 4 weeks, no strenuous exercise Diet: routine Instructions: routine Additional instructions: [] Smoking cessation referral if applicable(refer to patient education folder for contact #) [] Refer to [facility] Booklet Call your doctor immediately for: * Fever > 100.5 * Heavy vaginal bleeding ( >1 pad per hour) * Severe persistent headache * Shortness of breath * Reddened, hot, painful area to leg or breast * Drainage or odor from incision. * Keep incision clean and dry at all times and follow doctor's instructions regarding bathing/showering - Follow up plan Follow up: FLAQUITA OSORIO MD [Primary Care Provider] - 7 Days (Please call [phone] to schedule your postoperative visit in 1 week. Take medications as prescribed. Call with any concerns.)
[2019-01-25 08:55] VITALS: BP 106/69
[2019-01-25] MEDS: FEOSOL PO SCH (10:22)
== END 2019-01-25 10:42 | disposition home or self-care (01) | DRG 765 ==
LOC: TRG 15:40 → LD 15:41 → TRG 15:48 → LD 15:50 → OB 01-23 00:23
PROVIDERS: ADMIT Obstetrics & Gynecology; ATTEND Obstetrics & Gynecology
PROC: 10D00Z1 Extraction of Products of Conception, Low, Open Approach (ICD-10-PCS; principal; 2019-01-22)
PROC: 30233N1 Transfusion of Nonautologous Red Blood Cells into Peripheral Vein, Percutaneous Approach (ICD-10-PCS; 2019-01-23)
DX: O76 Abnormality in fetal heart rate and rhythm complicating labor and delivery (principal); O40.3XX0 Polyhydramnios, third trimester, not applicable or unspecified; O99.02 Anemia complicating childbirth; Z3A.36 36 weeks gestation of pregnancy; Z37.1 Single stillbirth; Z88.0 Allergy status to penicillin
CPT/HCPCS: 36415; 74018; 76816; 76819; 82803; 85014; 85018; 85025; 86850; 86900; 86901; 86920; 88307; G0378; J0330; J1170; J1200; J1885; J2250; J2270; J2300; J2370; J2405; J2590; J2704; J2710; J3010; J7040; J7120; J7121; P9016